=== PATIENT | male | born 1965 | race Caucasian/White ===

== ENCOUNTER → 2017-09-07 | Outpatient (CLI) | payer BC ==
[~2017-09-07] MED LIST: IBUPROFEN 800800 M1 PO; NABUMETONE 750750 M1 PO; TRAMADOL 50 MG50 MG PO
--- NOTE | 2017-09-07 17:04 | EXE ---
[place] [address] STRESS ECHOCARDIOGRAM Name: NASIM ZAMAN Room: [facility]#: [id number] Admission: 09/07/17 Attend Phys: Wes Felipe Discharge: Date of : 67 Date of Service: 09/07/17 1703 Report #: [id number] THIS REPORT FOR: //name// APPROVED REPORT Study performed: 09/07/2017 10:54:24 Exam: Stress Echocardiogram Indication: Dyspnea Patient Location: Out-Patient Stress Nurse: Daisha Shore RN Supervising Physician: Isaac Rubin MD Status: routine Ht: 5 ft 8 in HR: 75 bpm BP: 127/73 mmHg Rhythm: NSR Medical History Cardiac Risk Factors: FHX of CAD Procedure The patient underwent an Exercise Stress Test using the Shahzad Protocol. Blood pressure, heart rate, and EKG were monitored. An Echocardiogram was performed by senior laboratory technician in four stages in quad fashion. At peak stress, four selected images were obtained and placed side by side with resting images for comparison. Echo Enhancing Agent Indication: Endocardial border delineation Agent(s) / Amount(s) Used: Optison 8 cc Stress Test Details Stress Test: Exercise stress testing was performed using a Shahzad protocol. HR Resting HR: 75 bpm Max Heart Rate (APMHR): 169 bpm Max HR Achieved: 160 bpm Target HR (85% APMHR): 143 bpm % of APMHR: 94 Recovery HR: 97 bpm HR response to stress: Normal HR response to stress BP Resting BP: 127/73 mmHg Max BP: 159/[place] [address] STRESS ECHOCARDIOGRAM Name: NASIM ZAMAN Room: [facility]#: [id number] Admission: 09/07/17 Attend Phys: Wes Felipe Discharge: Date of : 67 Date of Service: 09/07/17 1703 Report #: [id number] Recovery BP: 134/73 mmHg ECG Resting ECG: Sinus Rhythm Stress ECG: Sinus Rhythm, nonspecific ST-T abnormalities ST Change: Upsloping ST depression Maximum ST Deviation: 0.5 mm Recovery ECG: Sinus Rhythm, nonspecific ST-T abnormalities Recovery ST Change: Horizontal ST depression Recovery ST Deviation: 0.5 mm Clinical Reason for Termination: Maximal effort Exercise duration: 7 min 37 sec Highest Stage Achieved: Stage 3: 3.4 mph at 14% grade. Exercise capacity: 9.53 METs Pre-Stress Echo The resting Echocardiogram showed normal left ventricular contractility with an estimated Ejection Fraction of about 55-60%. Post-Stress Echo The stress Echocardiogram showed normal left ventricular contractility with an estimated Ejection Fraction of about 65-70%. Conclusion Clinical Response: Non-ischemic Exercise Capacity: Average Stress ECG Response: Indeterminant Stress Echo Images: Non-ischemic low risk stress echo for future cardiac events Other Information Study Quality: Good <Conclusion> low risk stress echo for future cardiac events <ELECTRONICALLY SIGNED> By: Isaac Rubin MD, FACC 09/07/171702 02 02 Isaac Rubin MD, FACC /INF
== END ==
LOC: M.CRD 10:37
DX: R07.9 Chest pain, unspecified (principal); R06.00 Dyspnea, unspecified

== ENCOUNTER → 2018-12-19 | Outpatient (CLI) | payer BC | LOC: M.CT 09:00 | DX: R10.31 Right lower quadrant pain (principal); R59.0 Localized enlarged lymph nodes ==

== ENCOUNTER → 2019-02-13 | Outpatient (CLI) | payer BC ==
[~2019-02-13] MED LIST changes: +DUOBRII 0.01%-100 GM TOP
== END ==
LOC: M.PC 10:00 → M.RAD 10:36 → M.PC 10:36
DX: M47.26 Other spondylosis with radiculopathy, lumbar region (principal); M51.16 Intervertebral disc disorders with radiculopathy, lumbar region; M51.34 Other intervertebral disc degeneration, thoracic region; J45.909 Unspecified asthma, uncomplicated; M16.0 Bilateral primary osteoarthritis of hip; M43.16 Spondylolisthesis, lumbar region

== ENCOUNTER → 2019-02-19 | Outpatient (CLI) | payer BC | LOC: M.MRI 16:17 | DX: M51.17 Intervertebral disc disorders with radiculopathy, lumbosacral region (principal); M51.16 Intervertebral disc disorders with radiculopathy, lumbar region; E88.2 Lipomatosis, not elsewhere classified; M12.88 Other specific arthropathies, not elsewhere classified, other specified site ==

== ENCOUNTER → 2019-02-27 | Outpatient (CLI) | payer BC | END | disposition home or self-care (01) | LOC: M.PC 04:50 | DX: M54.5 Low back pain (principal); G89.29 Other chronic pain; M47.816 Spondylosis without myelopathy or radiculopathy, lumbar region; M51.36 Other intervertebral disc degeneration, lumbar region; J45.909 Unspecified asthma, uncomplicated; Z98.890 Other specified postprocedural states; Z79.899 Other long term (current) drug therapy ==

== ENCOUNTER → 2019-10-16 | Outpatient (CLI) | payer BC | END | disposition home or self-care (01) | LOC: M.PC 09:12 | DX: M47.816 Spondylosis without myelopathy or radiculopathy, lumbar region (principal); M54.5 Low back pain; G89.29 Other chronic pain ==

== ENCOUNTER 2020-10-24 16:47 | Emergency (ER) | payer BC ==
[~2020-10-24] VITALS: Ht 172.7 cm; Wt 103.4 kg
[2020-10-24 16:52] VITALS: BP 138/84
[2020-10-24] MEDS ORDERED: NORCO5 PO ×2 (17:42→17:50)
[2020-10-24] MEDS ORDERED: NAPROSYN500 MG PO (17:42)
== END 2020-10-24 17:52 | disposition home or self-care (01) ==
LOC: M.ERS 16:47
DX: S20.211A Contusion of right front wall of thorax, initial encounter (principal); Z88.1 Allergy status to other antibiotic agents; W01.0XXA Fall on same level from slipping, tripping and stumbling without subsequent striking against object, initial encounter; Y93.89 Activity, other specified; Y92.89 Other specified places as the place of occurrence of the external cause; Y99.8 Other external cause status